=== PATIENT | male | born 1995 | race Caucasian/White ===

== ENCOUNTER 2018-05-22 11:18 | Emergency (ER) | payer SELFPAY ==
[~2018-05-22] VITALS: Ht 170.2 cm; Wt 65.8 kg
[2018-05-22 11:50] VITALS: BP 122/86
[2018-05-22] MEDS ORDERED: KETOROLAC TROMETH 30 MG/ML 1ML VIAL IV ONE (12:30)
[2018-05-22] MEDS ORDERED: methylPREDNISolone SOD SUCC 125 MG/2 ML VL IV ONE (12:30)
[2018-05-22] MEDS ORDERED: cefTRIAXone 1GM/50ML D5W 50 ML IV ONE (12:30)
[2018-05-22] MEDS ORDERED: CLINDAMYCIN 600MG IV 50 ML IV ONE (12:30)
== END 2018-05-22 13:35 | disposition left against medical advice (07) ==
LOC: ER 11:24
DX: J03.90 Acute tonsillitis, unspecified (principal); F17.210 Nicotine dependence, cigarettes, uncomplicated; Z53.29 Procedure and treatment not carried out because of patient's decision for other reasons

== ENCOUNTER 2023-05-17 16:20 | Emergency (ER) | payer SELFPAY ==
[~2023-05-17] VITALS: Ht 172.7 cm; Wt 73.0 kg
[2023-05-17] MEDS: SODIUM CHLORIDE 0.9% 1,000 ML IV ONE (16:45)
[2023-05-17] MEDS: ACETAMINOPHEN 325 MG TAB PO ONE (17:42)
[2023-05-17 17:52] LABS: Rapid Influenza A Negative (Negative); Rapid Influenza B Negative (Negative)
[2023-05-17 17:52] LABS: COVID19 ANTIGEN SOFIA FIA NEGATIVE (NEGATIVE)
[2023-05-17] MEDS ORDERED: AZIT1POW PO (18:02)
[2023-05-17 18:32] VITALS: BP 125/88; PULSE 100; RESP 20; TEMP 99; O2SAT 97
== END 2023-05-17 18:33 ==
LOC: ER 16:20 → EDBD 16:20 → ER 18:32
DX: J02.9 Acute pharyngitis, unspecified (principal); R50.9 Fever, unspecified; Z20.822 Contact with and (suspected) exposure to COVID-19; Z98.890 Other specified postprocedural states
CPT/HCPCS: 36415; 71045; 87426; 87804; 96360; 99284; J7030

== ENCOUNTER 2024-07-10 22:59 | Emergency (ER) | payer SELFPAY ==
[~2024-07-10] VITALS: Ht 172.7 cm; Wt 72.6 kg
[~2024-07-10 22:59] MED LIST: AZIT1POW PO
[2024-07-10] MEDS ORDERED: CALCIUM CHLOR(10%) 100MG/ML 10ML SYRINGE IV ONE (23:00)
--- NOTE | 2024-07-10 23:07 | ED.PDOC ---
CPR-HPI HPI Comments 29-year-old male with unknown PMHx or PSHx brought in by EMS presents with a chief complaint of cardiac arrest s/p possible overdose. Patient is known Fentanyl user per EMS. Patient was found unresponsive in the bathroom with no palpable pulse. Patient was given 5 epi's via an IO in the right tibia. Patient was given 4mg of Narcan by EMS with no response. Patient has an unknown downtime per EMS and is currently receiving compressions via AUTO-PULSE. Despite ACLS protocols, patients TOD was pronounced at 23:09. Time Seen by MD: 22:59 Primary Care Provider: NONE Reviewed Notes: Medications Allergies: Coded Allergies: NO KNOWN ALLERGIES (Unverified , 05/22/18) Home Meds Active Scripts Azithromycin (Zithromax) 1 Gm Pow, 1 PACK PO ONCE, #1 PACK Prov:REECE DUNCAN MD 05/17/23 Information Source: Emergency Med Personnel Mode of Arrival: EMS Timing: Minutes Duration: Down time prior EMS: (UNKNOWN) Onset: Unknown Available Hx: Drug Overdose Inital rhythm: Asystole Treatment: CPR, Intubation, Other (AUTOPULSE) Response: No response Associated signs and symptoms: Unknown Past Medical History PAST MEDICAL HISTORY: Unknown Surgical History: Unknown Family History Family History: Unknown Social History Smoker: Unknown Alcohol: Unknown Drugs: Other (FENTANYL) Constitutional: denies: chills, diaphoresis, fatigue, fever, malaise, sweats, weakness, others EENTM: denies: blurred vision, double vision, ear bleeding, ear discharge, ear drainage, ear pain, ear ringing, eye pain, eye redness, hearing loss, mouth pain, mouth swelling, nasal discharge, nose bleeding, nose congestion, nose pain, photophobia, tearing, throat pain, throat swelling, voice changes, others Respiratory: denies: cough, hemoptysis, orthopnea, SOB at rest, shortness of breath, SOB with excertion, stridor, wheezing, others Cardiovascular: denies: chest pain, dizzy spells, diaphoresis, Dyspnea on exertion, edema, irregular heart beat, left arm pain, lightheadedness, palpitations, PND, syncope, others Gastrointestinal: denies: abdomen distended, abdominal pain, blood streaked bowels, constipated, diarrhea, dysphagia, difficulty swallowing, hematemesis, melena, nausea, poor appetite, poor fluid intake, rectal bleeding, rectal pain, vomiting, others Genitourinary: denies: burning, dysuria, flank pain, frequency, hematuria, incontinence, penile discharge, penile sore, pain, testicle pain, testicle swelling, urgency, others Neurological: denies: dizziness, fainting, headache, left sided numbness, left sided weakness, numbness, paresthesia, pre-existing deficit, right sided numbness, right sided weakness, seizure, speech problems, tingling, tremors, weakness, others Musculoskeletal: denies: back pain, gout, joint pain, joint swelling, muscle pain, muscle stiffness, neck pain, others Integumetry: denies: bruises, change in color, change in hair/nails, dryness, laceration, lesions, lumps, rash, wounds, others Allergic/Immunocompromised: denies: Difficulty Healing, Frequent Infections, Hives, Itching, others Hematologic/Lymphatic: denies: anemia, blood clots, easy bleeding, easy bruising, swollen glands, others Endocrine: denies: excessive hunger, excessive sweating, excessive thirst, excessive urination, flushing, intolerance to cold, intolerance to heat, unexplained weight gain, unexplained weight loss, others Psychiatric: denies: anxiety, bipolar disorder, depression, hopeless, panic disorder, schizophrenia, sleepless, suicidal, others Unable to Obtain due to: Medical Urgency (CPR IN PROGRESS) All Other Systems: Reviewed and Negative Physical Exam General Appearance: Other (CPR IN PROGRESS) HEENT: NOT DONE Neck: NOT DONE Respiratory: NOT DONE Cardiovascular: NOT DONE Breast Exam: Deferred Gastrointestinal: NOT DONE Genitalia: Deferred Pelvic: Deferred Rectal: Deferred Extremities: NOT DONE Neurologic: NOT DONE Cerebellar Function: NOT DONE Reflexes: NOT DONE Skin: NOT DONE Lymphatic: NOT DONE Was a procedure done? Was a procedure done?: No Differential Dx CPR Differential Diagnosis: Cardiopulmonary arrest, Cardiac Tamponade, Cardiogenic shock, Dysrhythmia, Heart Block, Myocardial Infarction, Pneumothorax, Respiratory Failure, Other (Opiate overdose) X-Ray, Labs, Meds, VS Vital Signs Date Time Temp Pulse Resp B/P (MAP) Pulse Ox O2 Delivery O2 Flow Rate FiO2 07/10/24 23:14 97.0 0 0 0/0 (0) 0 97.0 Time of 1ST Reevaluation: 23:09 Reevaluation 1ST: Worsened Patient Education/Counseling: Pt Unresponsive Family Education/Counseling: No Family Present Departure 1 Departure Time of Disposition: 02:23 (Patient presenting with a cardiac arrest. ACLS per protocol. Unknown total downtime. Ultimately time of was called.) Impression: Primary Impression: Cardiac arrest Disposition: 20 Condition: Other () Critical Care Note Critical Care Time?: No Heart Score Heart Score: Heart Score Response (Comments) Value History N/A 0 EKG N/A 0 Age N/A 0 Risk Factors N/A 0 Troponin N/A 0 Total 0 Stability Stability form required: No I personally scribed for ARETHA ROBLEDO MD ([email or web address]) on 07/10/24 at 23:07. Electronically submitted by Sj Funez ([email or web address]). I personally scribed for ARETHA ROBLEDO MD ([email or web address]) on 07/10/24 at 23:12. Electronically submitted by Sj Funez ([email or web address]). ARETHA ROBLEDO MD Jul 10, 2024 23:07
[2024-07-10 23:14] VITALS: BP 0/0; PULSE 0; RESP 0; TEMP 97; O2SAT 0
--- NOTE | 2024-07-11 03:10 | RESUS ---
CODE BLUE ASSESSSMENT History of Events History of Events: 29-year-old male with unknown PMHx or PSHx brought in by EMS presents with a chief complaint of cardiac arrest s/p possible overdose. Patient is known Fentanyl user per EMS. Patient was found unresponsive in the bathroom with no palpable pulse. Patient was given 5 epi's via an IO in the right tibia. Patient was given 4mg of Narcan by EMS with no response. Patient has an unknown downtime per EMS and arrived receiving compressions via AUTO-PULSE. Initial Information Date: Jul 10, 2024 Location of Arrest: In Field Arrest Witnessed: No CPR started by whom: EMS Pre-Hospital Care: ACLS Type of arrest: Cardiac, Respiratory, Adult, Unwitnessed Spontaneous Respirations: No Pulse Present: No Monitoring: ECG, Pulse Oximetry, Apnea, Telemetry Crash Cart Opened and Supplies: Yes Airway Ventilation Breathing at Onset: Apneic Oxygen Delivery Method: Ambu-Bag Oxygen 100% Artificial Ventilation: Bag/Endo tube Intubation Size: 8.0 cuffed Intubated by: EMS Intubated orally: Yes Intubated Nasaly: No Tube secured at: 26 CO2 indicator used: Yes Confirmation: Auscultation, Exhaled CO2 Comments: PT INTUBATED BY EMS IN FIELD Circulation Circulation : Time: 23:00 Pulse Rate (adult): 0 Blood Pressure Systolic: 0 Blood Pressure Diastolic: 0 Temperature (Fahrenheit): 97.7 Procedure - IV Procedure - IV : IV start time: 23:02 IV Side: Left IV Location: Antecubital IV Catheter Type: Saline Lock IV Placed by TOREY ROBERSON IV Gauge: 18 IV Line Care: Saline Flush Procedure - Intraosseous Site of Intraosseous: Tibia charo-medial Comment: PLACED BY EMS IN FIELD Medications & Response Medications and Responses #1: Medication Time: 23:01 ADULT Medications Given ADULT: Epinephrine 1 mg, Sodium Bacarbinate 50 meq, Calcium Chloride 10 mL Route of Administration: IO Heart Rate: 0 EKG Rhythm: Asystole Blood Pressure Systolic: 0 Blood Pressure Diastolic: 0 Respiratory Rate: 0 O2 Sat by Pulse Oximetry: 0 EKG Rhythm: Asystole Comment NO PULSE 2304 ASYSTOLE ON MONITOR Medications and Responses #2: Medication Time: 23:04 ADULT Medications Given ADULT: Epinephrine 1 mg, Magnesium Sulfate 2 gm Route of Administration: IV Heart Rate: 1 EKG Rhythm: Asystole Blood Pressure Systolic: 0 Blood Pressure Diastolic: 0 Respiratory Rate: 0 O2 Sat by Pulse Oximetry: 0 EKG Rhythm: Asystole Comment 2306 NO PULSE ASYSTOLE ON MONITOR Medications and Responses #3: Medication Time: 23:07 ADULT Medications Given ADULT: Epinephrine 1 mg Route of Administration: IV Heart Rate: 0 EKG Rhythm: Asystole Blood Pressure Systolic: 0 Blood Pressure Diastolic: 0 Respiratory Rate: 0 O2 Sat by Pulse Oximetry: 0 EKG Rhythm: Asystole Comment NO PULSE 230 PT PRONOUNCED Pacing Pacer Pads Applied and Pacing: Yes Nurses Notes [place] Coma Scale Eye Opening: None (1) [place] Coma Scale Verbal: None (1) [place]ie Coma Scale Motor: None (1) [place] Total: 3 Pupil Reaction: Non Reactive Bedside Blood Glucose: 97 EKG Rhythm: Asystole Time Code Ended Time Code Ended: 23:09 Post Arrest Status: Outcome of code: Unsuccessful Patient pronounced by: DR ROBLEDO Time patient pronounced: 23:09 Family notified: Yes Attending called: Yes Code Team Present: GEORGE CARRENO RN HS, TOREY CHARGE, JANNET RN, ANTONY RN, ROMERO RN, KUSH ERT, ALIA ERT, MARINA RT, SEB RT. Post Resuscitation Neurologica Pupil Size: 5 Comment: GEORGE JAMISON Jul 11, 2024 03:10
== END 2024-07-10 23:17 ==
LOC: EDBD 22:59 → ER 22:59
DX: I46.9 Cardiac arrest, cause unspecified (principal); F17.200 Nicotine dependence, unspecified, uncomplicated
CPT/HCPCS: 31500; 92950